=== PATIENT | female | born 1990 | race Caucasian/White ===

== ENCOUNTER 2022-11-28 20:19 | Emergency (ER) | payer OTHER ==
[~2022-11-28] VITALS: Ht 160 cm; Wt 59.0 kg
[~2022-11-28 20:19] MED LIST: IBUP800 PO; Verotin-Gr Cap1 EACH
[2022-11-28 20:49] VITALS: BP 172/106
== END 2022-11-28 22:51 | disposition home or self-care (01) ==
LOC: ER 20:19
DX: S40.012A Contusion of left shoulder, initial encounter (principal); S20.212A Contusion of left front wall of thorax, initial encounter; M54.2 Cervicalgia; V43.52XA Car driver injured in collision with other type car in traffic accident, initial encounter; W22.10XA Striking against or struck by unspecified automobile airbag, initial encounter
CPT/HCPCS: 71046; 72040; 99284-25